=== PATIENT | male | born 1980 | race Caucasian/White ===

== ENCOUNTER 2017-04-13 15:24 | Emergency (ER) | payer OTHER, MEDICAID ==
[~2017-04-13] VITALS: Ht 175.3 cm; Wt 68.0 kg
[~2017-04-13 15:24] MED LIST: AUGMENTIN 875875 MG PO; IBUPROFEN 800800 M1 PO; TYLENOL P.M. E1 EAC3 PO; VICODIN 5-5001 EACH PO
[2017-04-13 16:25] VITALS: BP 120/85
== END 2017-04-13 16:26 | disposition home or self-care (01) ==
LOC: M.ERS 15:24
DX: S93.492A Sprain of other ligament of left ankle, initial encounter (principal); X50.1XXA Overexertion from prolonged static or awkward postures, initial encounter; Y93.67 Activity, basketball; Y92.89 Other specified places as the place of occurrence of the external cause; Y99.8 Other external cause status

== ENCOUNTER 2017-09-06 16:03 | Emergency (ER) | payer OTHER, MEDICAID ==
[~2017-09-06] VITALS: Ht 175.3 cm; Wt 72.6 kg
[2017-09-06 17:25] LABS: ABSOLUTE BASOPHILS 0.1 thou/uL (0.0-0.2); ABSOLUTE EOSINOPHILS 0.1 thou/uL (0.0-0.7); ABSOLUTE LYMPHOCYTES 2.1 thou/uL (0.8-5.3); ABSOLUTE MONOCYTES 0.6 thou/uL (0.0-1.2); ABSOLUTE NEUTROPHILS 5.2 thou/uL (1.6-8.1); EOSINOPHILS 1.2 %; HEMOGLOBIN 14.5 gm/dL (14.0-18.0); LYMPHOCYTES 26.5 %; MCH 31.2 pg (26.0-34.0); MCHC 34.5 g/dL (28.0-37.0); MCV 90.3 fL (80.0-100.0); MONOCYTES 7.3 %; MPV 7.8 fl. (7.2-11.1); NUCLEATED RBCS 0 /100WBC; PLATELET COUNT* 263 thou/uL (150-400); RBC 4.65 mil/uL (4.50-6.00); RDW-CV 12.5 % (10.5-14.5); WBC 8.1 thou/uL (4.0-11.0)
[2017-09-06 17:33] LABS: CALCIUM 9.1 mg/dL (8.5-10.1); CREATININE 0.8 mg/dL (0.6-1.3); POTASSIUM 3.9 mmol/L (3.5-5.1)
[2017-09-06 17:37] LABS: ALBUMIN 4.1 g/dL (3.4-5.0); TOTAL BILIRUBIN 0.5 mg/dL (<0.1-1.0); TOTAL PROTEIN 7.4 g/dL (6.4-8.2)
[2017-09-06] MEDS ORDERED: PHENERGAN 25 MG25 M1 PO (18:47)
[2017-09-06] MEDS ORDERED: LOPERAMIDE 2 MG2 M1 PO (18:47)
[2017-09-06 18:58] VITALS: BP 102/65
--- NOTE | 2017-09-07 14:31 | EKG ---
[place] [address] ELECTROCARDIOGRAM REPORT Name: SCARLETT HUMMEL Room: [facility]#: [id number] Admission: 09/06/17 Attend Phys: Discharge: 09/06/17 Date of : 84 Report #: [id number] THIS REPORT FOR: //name// [facility] ED Test Date: 2017-09-06 Test Time: 17:21:56 Pat Name: SCARLETT HUMMEL Department: Room: Gender: Sas Bi Developer: Josselyn WHITTINGTON : 1980 Requested By: Rosanne Barriga Order Number: [id number] MD: Mushtaq Schmitt Measurements Intervals [place] Rate: 71 P: 50 LA: 181 QRS: 77 QRSD: 95 T: 42 QT: 371 QTc: 404 Interpretive Statements Sinus rhythm ST elevation suggests acute pericarditis No previous ECG available for comparison Electronically Signed On 09-07-2017 14:31:05 CDT by Mushtaq Schmitt [email or web address] <ELECTRONICALLY SIGNED> By: Mushtaq Schmitt MD, [facility] 09/07/17 1431 1721 20 Mushtaq Schmitt MD, [facility] /EPI
== END 2017-09-06 18:59 | disposition home or self-care (01) ==
LOC: M.ERS 16:03
PROVIDERS: Physician Assistant
DX: R42 Dizziness and giddiness (principal); R19.7 Diarrhea, unspecified; R11.0 Nausea